=== PATIENT | female | born 1960 | race Caucasian/White ===

== ENCOUNTER → 2017-04-20 14:30 | Outpatient (REF) | payer MEDICAID, SELFPAY | LOC: LAB 14:30 | PROVIDERS: Visit Provider Physician Assistant | DX: L02.216 Cutaneous abscess of umbilicus (principal) | CPT/HCPCS: 87070; 87077; 87205 ==

== ENCOUNTER → 2017-05-10 12:17 | Outpatient (CLI) | payer MEDICAID, SELFPAY ==
[2017-05-10 12:47] LABS: Anion Gap 6.6 mEq/L (5-15); Blood Urea Nitrogen 4 mg/dL (7-18); Carbon Dioxide 31 mmol/L (21.0-32.0); Chloride 105 mmol/L (98-107); Creatinine,Serum 0.83 mg/dL (0.55-1.02); Estimated Glomerular Filt Rate 71 ml/min (>60); GFR (African American) 85 ML/MIN (>60); Glucose 87 mg/dL (74-106); Potassium 3.6 mmoL/L (3.5-5.1); Sodium 139 mmol/L (136-145)
== END ==
PROVIDERS: Visit Provider Physician Assistant
DX: Z01.812 Encounter for preprocedural laboratory examination (principal)
CPT/HCPCS: 36415; 80048

== ENCOUNTER → 2019-01-17 14:23 | Outpatient (CLI) | payer MEDICAID, SELFPAY ==
[2019-01-17 14:38] LABS: Basophils # 0.1 K/mm3 (0-0.2); Basophils % 0.8 % (0.1-2.0); Eosinophils # 0.1 K/mm3 (0.0-0.4); Eosinophils % 0.9 % (0.1-12.0); Hematocrit 46.7 % (37.0-47.0); Lymphocytes # 2.3 K/mm3 (0.7-4.5); Lymphocytes % 33.3 % (10-50); Mean Corpuscular HGB Conc 32.1 g/dL (31.8-35.4); Mean Corpuscular Hemoglobin 28.8 pg (27.0-31.2); Mean Corpuscular Volume 89.8 fl (81-99); Mean Platelet Volume 9.2 fl (7.4-10.4); Monocytes # 0.3 K/mm3 (0.1-1.0); Monocytes % 4.2 % (1.7-9.3); Neutrophils # 4.2 K/mm3 (1.8-7.8); Neutrophils % 60.8 % (37.0-80.0); Platelet Count 306 K/mm3 (142-424); Red Cell Distribution Width 13.7 % (11.5-17.5)
[2019-01-17 16:32] LABS: Alanine Aminotransferase 21 U/L (12-78); Albumin Level 3.8 gm/dL (3.4-5.0); Albumin/Globulin Ratio 1.3 (1.1-1.8); Alkaline Phosphatase 69 U/L (46-116); Aspartate Amino Transferase 10 U/L (15-37); Bilirubin,Total 0.6 mg/dL (0.2-1.0); Blood Urea Nitrogen 5 mg/dL (7-18); Calcium 8.9 mg/dL (8.5-10.1); Carbon Dioxide 24 mmol/L (21.0-32.0); Chloride 103 mmol/L (98-107); Chol/HDL Ratio 3.4 (1-3.5); Cholesterol 195 mg/dL (140-200); Creatinine,Serum 0.87 mg/dL (0.55-1.02); Estimated Glomerular Filt Rate 67 ml/min (>60); GFR (African American) 81 ML/MIN (>60); Globulin 2.9 gm/dl (1.3-3.2); Glucose 92 mg/dL (74-106); HDL Cholesterol 58 mg/dL (29-89); LDL Cholesterol 112 mg/dL (0-130); Sodium 141 mmol/L (136-145); T4 (Thyroxine) 10.6 ug/dl (4.7-13.3); Thyroid Stimulating Hormone 1.13 uIU/ml (0.358-3.740); Total Protein,Serum 6.7 gm/dL (6.4-8.2); Triglycerides 126 mg/dL (30-200); VLDL Cholesterol 25 mg/dL (0-40)
[2019-01-19 08:13] LABS: Vitamin D 25 Hydroxy 13.4 ng/mL (30.0-100.0)
== END ==
PROVIDERS: Visit Provider Physician Assistant
DX: M19.90 Unspecified osteoarthritis, unspecified site (principal); E55.9 Vitamin D deficiency, unspecified
CPT/HCPCS: 80053; 80061; 82652; 84436; 84443; 85025

== ENCOUNTER → 2019-07-17 14:36 | Outpatient (CLI) | payer MEDICAID, SELFPAY ==
[2019-07-17 15:01] LABS: Basophils # 0.1 K/mm3 (0-0.2); Basophils % 0.8 % (0.1-2.0); Eosinophils # 0.1 K/mm3 (0.0-0.4); Eosinophils % 1.2 % (0.1-12.0); Hematocrit 48.7 % (37.0-47.0); Hemoglobin 15.7 g/dL (12.2-16.2); Lymphocytes # 2.4 K/mm3 (0.7-4.5); Lymphocytes % 28.2 % (10-50); Mean Corpuscular HGB Conc 32.3 g/dL (31.8-35.4); Mean Corpuscular Hemoglobin 27.9 pg (27.0-31.2); Mean Corpuscular Volume 86.3 fl (81-99); Mean Platelet Volume 8.6 fl (7.4-10.4); Monocytes # 0.4 K/mm3 (0.1-1.0); Monocytes % 4.8 % (1.7-9.3); Neutrophils # 5.5 K/mm3 (1.8-7.8); Platelet Count 362 K/mm3 (142-424); Red Blood Count 5.64 M/mm3 (4.20-5.40); Red Cell Distribution Width 14.3 % (11.5-17.5); White Blood Count 8.5 K/mm3 (4.8-10.8)
[2019-07-17 15:11] LABS: Chloride 105 mmol/L (98-107); Potassium 3.9 mmoL/L (3.5-5.1); Sodium 139 mmol/L (136-145)
[2019-07-17 15:13] LABS: Blood Urea Nitrogen 11 mg/dl (7-17); Estimated Glomerular Filt Rate 73 ml/min (>60); GFR (African American) 89 ML/MIN (>60)
[2019-07-17 15:14] LABS: Alanine Aminotransferase 19 U/L (12-78); Albumin Level 4.8 g/dl (3.5-5.0); Albumin/Globulin Ratio 1.7 (1.1-1.8); Alkaline Phosphatase 70 U/L (38-126); Anion Gap 10.9 mEq/L (5-15); Aspartate Amino Transferase 31 U/L (14-36); Bilirubin,Total 0.6 mg/dl (0.2-1.3); Calcium 10.1 mg/dl (8.4-10.2); Carbon Dioxide 27 mmol/L (22.0-30.0); Cholesterol 245 mg/dl (140-200); Globulin 2.9 g/dL (1.3-3.2); Glucose 115 mg/dl (74-100); HDL Cholesterol 83 mg/dl (40-60); Total Protein,Serum 7.7 g/dl (6.3-8.2); Triglycerides 143 mg/dl (30-150); VLDL Cholesterol 29 mg/dL (0-40)
[2019-07-17 15:26] LABS: Direct LDL Cholesterol 152.33 mg/dL (100-129)
[2019-07-17 15:32] LABS: T4 (Thyroxine) 11.4 ug/dl (5.53-11.0)
[2019-07-17 15:45] LABS: Thyroid Stimulating Hormone 1.67 uIU/mL (0.465-4.68)
[2019-07-18 21:53] LABS: Vitamin D 25 Hydroxy 13.4
== END ==
PROVIDERS: Visit Provider Physician Assistant
DX: M19.90 Unspecified osteoarthritis, unspecified site (principal); E55.9 Vitamin D deficiency, unspecified
CPT/HCPCS: 80053; 80061; 82652; 84436; 84443; 85025

== ENCOUNTER → 2019-07-27 12:49 | Outpatient (CLI) | payer MEDICAID, SELFPAY ==
--- NOTE | 2019-07-27 12:49 | MM_ITS ---
PROCEDURE: MM DIG SCREENING MAMM BI W/CAD Digital Breast Tomosynthesis Included CLINICAL INDICATION: screening There is no personal or family history of breast cancer. COMPARISON: DMSB DIG MAMM-SCREEN ANA ROSA from 02/20/2016 TECHNIQUE: Standard CC and MLO images and 3D Tomosynthesis was obtained. R2 CAD reviewed. FINDINGS: Mild scattered fibroglandular densities are seen throughout both breasts on a background of fatty breast parenchyma. There are few benign-appearing microcalcifications in each breast. Tim images were reviewed. There is no suspicious lesion in either breast and no suspicious microcalcifications. IMPRESSION: Fibrofatty parenchyma with no suspicious lesions seen BI-RAD Category: 2 Benign Finding(s) FOLLOW-UP: 1YR 1 Year Follow-up (A letter has been sent to the patient regarding results of the study.) Dictated by: Dr. Cisco Preston MD 07/28/2019 08:[address] Cisco Preston MD in [place] 07/28/2019 08:55
== END ==
PROVIDERS: PCP Physician Assistant; Visit Provider Physician Assistant
DX: Z12.31 Encounter for screening mammogram for malignant neoplasm of breast (principal)
CPT/HCPCS: 77063; 77067

== ENCOUNTER → 2019-09-14 13:22 | Outpatient (CLI) | payer MEDICAID, SELFPAY | PROVIDERS: Visit Provider Physician Assistant | DX: N39.0 Urinary tract infection, site not specified (principal) | CPT/HCPCS: 87086 ==

== ENCOUNTER → 2020-08-06 14:06 | Outpatient (CLI) | payer MEDICAID, SELFPAY ==
[2020-08-06 14:17] LABS: Basophils # 0.1 K/mm3 (0-0.2); Eosinophils # 0.1 K/mm3 (0.0-0.4); Eosinophils % 1.1 % (0.1-12.0); Hematocrit 45.8 % (37.0-47.0); Hemoglobin 15.4 g/dL (12.2-16.2); Lymphocytes # 2.2 K/mm3 (0.7-4.5); Lymphocytes % 28.7 % (10-50); Mean Corpuscular HGB Conc 33.6 g/dL (31.8-35.4); Mean Corpuscular Hemoglobin 29.2 pg (27.0-31.2); Mean Corpuscular Volume 86.8 fl (81-99); Mean Platelet Volume 8.7 fl (7.4-10.4); Monocytes # 0.4 K/mm3 (0.1-1.0); Monocytes % 5.5 % (1.7-9.3); Neutrophils % 63.7 % (37.0-80.0); Platelet Count 359 K/mm3 (142-424); Red Blood Count 5.28 M/mm3 (4.20-5.40); Red Cell Distribution Width 14.5 % (11.5-17.5); White Blood Count 7.8 K/mm3 (4.8-10.8)
[2020-08-06 14:49] LABS: Alanine Aminotransferase 13 U/L (12-78); Albumin Level 4.2 g/dl (3.5-5.0); Albumin/Globulin Ratio 1.6 (1.1-1.8); Alkaline Phosphatase 66 U/L (38-126); Anion Gap 8.4 mEq/L (5-15); Aspartate Amino Transferase 23 U/L (14-36); Bilirubin,Total 0.6 mg/dl (0.2-1.3); Blood Urea Nitrogen 6 mg/dl (7-17); Calcium 9.5 mg/dl (8.4-10.2); Carbon Dioxide 33 mmol/L (22.0-30.0); Chloride 105 mmol/L (98-107); Chol/HDL Ratio 3.9 (1-3.5); Cholesterol 216 mg/dl (140-200); Estimated Glomerular Filt Rate 73 ml/min (>60); GFR (African American) 88 ML/MIN (>60); Globulin 2.7 g/dL (1.3-3.2); Glucose 81 mg/dl (74-100); HDL Cholesterol 55 mg/dl (40-60); Potassium 4.4 mmoL/L (3.5-5.1); Sodium 142 mmol/L (136-145); Total Protein,Serum 6.9 g/dl (6.3-8.2); Triglycerides 185 mg/dl (30-150); VLDL Cholesterol 37 mg/dL (0-40)
[2020-08-06 15:01] LABS: Direct LDL Cholesterol 107.25 mg/dL (100-129)
[2020-08-06 15:06] LABS: 25-OH Vitamin D, Total 16.5 ng/mL (30-100)
[2020-08-06 15:15] LABS: Free T4 (Free Thyroxine) 1.27 ng/dl (0.78-2.19)
[2020-08-06 15:21] LABS: Thyroid Stimulating Hormone 1.65 uIU/mL (0.465-4.68)
[2020-08-06 15:39] LABS: Vitamin B12 277 pg/mL (239-931)
== END ==
PROVIDERS: Visit Provider Physician Assistant
DX: M19.90 Unspecified osteoarthritis, unspecified site (principal); G62.9 Polyneuropathy, unspecified; E78.5 Hyperlipidemia, unspecified; E55.9 Vitamin D deficiency, unspecified; K21.9 Gastro-esophageal reflux disease without esophagitis
CPT/HCPCS: 80053; 80061; 82306; 82607; 84439; 84443; 85025

== ENCOUNTER → 2020-08-19 16:02 | Outpatient (CLI) | payer MEDICAID, SELFPAY ==
--- NOTE | 2020-08-19 16:05 | MM_ITS ---
PROCEDURE: MM DIG SCREENING MAMM BI W/CAD Digital Breast Tomosynthesis Included CLINICAL INDICATION: Breast cancer screening COMPARISON: MG DMSB DIG MAMM-SCREEN ANA ROSA from 02/20/2016 MG MM DIG SCREENING MAMM BI W/CAD from 07/27/2019 TECHNIQUE: Standard CC and MLO images and 3D Tomosynthesis was obtained. R2 CAD reviewed. FINDINGS: There are scattered fibroglandular elements which may obscure a lesion on mammography. No new dominant mass or indirect evidence of malignancy. No suspicious type microcalcifications. IMPRESSION: Normal bilateral digital screening mammograms. BI-RAD Category: 1 Negative FOLLOW-UP: 1 YR 1 Year Follow-up (A letter has been sent to the patient regarding results of the study.) Dictated by: Miguel Baez MD 08/21/2020 16:54 Miguel Baez MD in [place] 08/21/2020 16:54
== END ==
PROVIDERS: PCP Physician Assistant; Visit Provider Physician Assistant
DX: Z12.31 Encounter for screening mammogram for malignant neoplasm of breast (principal)
CPT/HCPCS: 77063; 77067

== ENCOUNTER 2021-04-03 08:59 | Emergency (ER) | payer MEDICAID, SELFPAY ==
[2021-04-03 09:01] VITALS: BP 129/84; PULSE 104; RESP 20; TEMP 36.5; O2SAT 96; BMI 28.5
[2021-04-03 09:08] VITALS: BP 129/84; PULSE 101; O2SAT 97
--- NOTE | 2021-04-03 09:17 | XR_ITS ---
FINAL REPORT CLINICAL HISTORY: fatigue, cough FINDINGS: SINGLE VIEW CHEST The heart is normal in size. Median sternotomy wires are seen in the upper sternum. There is a calcified granuloma at the right apex. The lungs are otherwise clear. There is no pneumothorax. IMPRESSION: No acute cardiopulmonary process Reviewed, Interpreted and Dictated by Mal Quinones MD Transcribed by Priya Guevara Authenticated by Mal Quinones MD on 04/03/2021 10:07:22 AM [facility]
[2021-04-03 09:21] LABS: Influenza A, PCR Not Detected (NotDetected); Influenza B, PCR Not Detected (NotDetected)
[2021-04-03 09:26] LABS: Basophils # 0.2 K/mm3 (0-0.2); Basophils % 1.2 % (0.1-2.0); Eosinophils # 0.2 K/mm3 (0.0-0.4); Eosinophils % 1.6 % (0.1-12.0); Lymphocytes # 2.2 K/mm3 (0.7-4.5); Lymphocytes % 16.6 % (10-50); Mean Corpuscular HGB Conc 34.8 g/dL (31.8-35.4); Mean Corpuscular Hemoglobin 29.9 pg (27.0-31.2); Mean Corpuscular Volume 85.8 fl (81-99); Mean Platelet Volume 8.9 fl (7.4-10.4); Monocytes # 0.5 K/mm3 (0.1-1.0); Monocytes % 3.6 % (1.7-9.3); Neutrophils # 10.3 K/mm3 (1.8-7.8); Platelet Count 495 K/mm3 (142-424); Red Blood Count 6.18 M/mm3 (4.20-5.40); Red Cell Distribution Width 13.4 % (11.5-17.5); White Blood Count 13.4 K/mm3 (4.8-10.8)
--- NOTE | 2021-04-03 09:26 | HMH.EDGENADL ---
ED Disposition Clinical Impression: COVID-19, Hypokalemia Disposition: Home, Self-Care Condition on Discharge: Fair Instructions: DI for COVID-19 (Suspected or Confirmed ), DI for Hypokalemia Additional Instructions: You have been evaluated for malaise, fatigue, decreased oral intake. You have been diagnosed with COVID-19. Your potassium level today is low. Please monitor your symptoms at home. Tylenol for aches and pains. Zofran for nausea. Take potassium supplement daily. Follow-up with your primary care doctor. Return to the emergency department for any new or worsening symptoms, difficulty breathing or other concerns Prescriptions: ondansetron HCL [Ondansetron 4mg tab*] 4 mg PO Q6 PRN #12 tab PRN Reason: Nausea And Vomiting Transmission Status: Pending to [facility] Referrals: Becky Chawla PA [Primary Care Provider] - Time of Disposition: 11:20 - Critical Care Critical Care Time: No Attestation: On 04/03/21, the high probability of a clinically significant, sudden or life threatening deterioration of the following system(s) required my full and direct attention, intervention and personal management. The time I documented below is in addition to time spent performing reported procedures but includes the following listed in this critical care notation. Medical Decision Making - Medical Records Medical records reviewed: Yes: I reviewed the patient's medical records. - [place] Inquiry Pt receiving controlled substance: No Vital Signs: 04/03/21 09:01 04/03/21 09:08 04/03/21 11:05 Temperature 97.7 F Temperature Source Oral Pulse Rate 101 H 71 Pulse Rate [Left Radial] 104 H Respiratory Rate 20 Blood Pressure 129/84 144/69 H Blood Pressure [Right Arm] 129/84 Blood Pressure Mean [Right Arm] 99 Blood Pressure Source [Right Arm] Automatic Cuff Blood Pressure Position [Right Arm] Sitting 02 Sat by Pulse Oximetry 96 97 100 Oxygen Delivery Method Room Air - Lab Data Lab Results 04/03/21 09:15: WBC 13.4 H, RBC 6.18 H, Hgb 18.3 H, Hct 53.0 H, MCV 85.8, MCH 29.9, MCHC 34.8, RDW 13.4, Plt Count 495 H, MPV 8.9, Neut % (Auto) 77.0, Lymph % (Auto) 16.6, Barton % (Auto) 3.6, Eos % (Auto) 1.6, Baso % (Auto) 1.2, Neut # (Auto) 10.3 H, Lymph # (Auto) 2.2, Barton # (Auto) 0.5, Eos # (Auto) 0.2, Baso # (Auto) 0.2 04/03/21 09:15: Sodium 138, Potassium 2.9 L*, Chloride 97 L, Carbon Dioxide 30, Anion Gap 13.9, BUN 21 H, Creatinine 0.90, Estimated Creat Clear 65, Estimated GFR 63, Est GFR ( Amer) 77, Glucose 118 H, Calcium 9.2, Total Bilirubin 1.6 H, AST 70 H, ALT 83 H, Alkaline Phosphatase 60, Total Protein 6.6, Albumin 4.1, Globulin 2.5, Albumin/Globulin Ratio 1.6, Lipase 133 04/03/21 09:15: SARS-CoV-2 (PCR) Detected A, Influenza A Untype (PCR) Not detected, Influenza Type B (PCR) Not detected Result diagrams: 04/03/21 09:15 04/03/21 09:15 Orders (Tests/Meds): ED MEDICATIONS Generic Name Dose Route Start Last Admin Trade Name Freq PRN Reason Stop Dose Admin Sodium Chloride 1,000 mls @ 500 mls/hr 04/03/21 09:30 04/03/21 09:47 Sod Chlor 0.9% 1000ml Bag IV 05/03/21 09:29 500 mls/hr .Q2H JACQUELINE Administration Discontinued Medications Generic Name Dose Route Start Last Admin Trade Name Freq PRN Reason Stop Dose Admin Ondansetron HCl 4 mg 04/03/21 09:17 04/03/21 09:46 Ondansetron 4mg/2ml Vial IV 04/03/21 09:18 4 mg ONCE ONE Administration ORDERS Category Date Time Status Urinalysis and Microscopic Stat Lab 04/03/21 09:17 Ordered Medical Decision Narrative: In summary this is a 61-year-old female presenting to the emergency department with body aches, malaise, cough, diarrhea, fatigue. Patient clinically stable on arrival. Vital signs within normal limits. Concern for COVID-19, influenza, dehydration, kidney injury, electrolyte disturbance, urinary tract infection, pneumonia. Will obtain CBC, CMP, lipase, urinalysis, chest x-ray,
[2021-04-03 09:37] LABS: Hemoglobin 18.3 g/dL (12.2-16.2)
[2021-04-03 10:04] LABS: Coronavirus 19, PCR Detected (NotDetected)
[2021-04-03 10:44] LABS: Alanine Aminotransferase 83 U/L (12-78); Albumin Level 4.1 g/dl (3.5-5.0); Albumin/Globulin Ratio 1.6 (1.1-1.8); Alkaline Phosphatase 60 U/L (38-126); Anion Gap 13.9 mEq/L (5-15); Aspartate Amino Transferase 70 U/L (14-36); Bilirubin,Total 1.6 mg/dl (0.2-1.3); Blood Urea Nitrogen 21 mg/dl (7-17); Calcium 9.2 mg/dl (8.4-10.2); Carbon Dioxide 30 mmol/L (22.0-30.0); Chloride 97 mmol/L (98-107); Creatinine Clearance Estimated 65 mL/min (50-200); Estimated Glomerular Filt Rate 63 ml/min (>60); GFR (African American) 77 ML/MIN (>60); Globulin 2.5 g/dL (1.3-3.2); Glucose 118 mg/dl (74-100); Lipase 133 U/L (23-300); Sodium 138 mmol/L (136-145); Total Protein,Serum 6.6 g/dl (6.3-8.2)
[2021-04-03 10:47] LABS: Potassium 2.9 mmoL/L (3.5-5.1)
[2021-04-03 11:05] VITALS: BP 144/69; PULSE 71; O2SAT 100
[2021-04-03 11:30] VITALS: BP 147/68; PULSE 68; O2SAT 96
[2021-04-03 12:01] VITALS: BP 144/71; PULSE 81; O2SAT 100
--- NOTE | 2021-04-03 12:14 | PC.NURSE ---
Patient eating at bedside
[2021-04-03 12:52] VITALS: BP 144/71; PULSE 81; RESP 20; TEMP 36.5; O2SAT 100
== END 2021-04-03 12:53 | disposition home or self-care (01) ==
PROVIDERS: Emergency Provider Emergency Medicine; PCP Physician Assistant
DX: U07.1 COVID-19 (principal); K21.9 Gastro-esophageal reflux disease without esophagitis; F17.210 Nicotine dependence, cigarettes, uncomplicated
CPT/HCPCS: 71045; 80053; 83690; 85025; 99283; C9803; J2405; U0003; U0005

== ENCOUNTER → 2021-08-21 13:26 | Outpatient (CLI) | payer MEDICAID, SELFPAY ==
[2021-08-21 13:33] LABS: Anion Gap 11.8 mEq/L (5-15); Blood Urea Nitrogen 9 mg/dl (7-17); Calcium 9.5 mg/dl (8.4-10.2); Carbon Dioxide 26 mmol/L (22.0-30.0); Chloride 105 mmol/L (98-107); Estimated Glomerular Filt Rate 85 ml/min (>60); GFR (African American) 103 ML/MIN (>60); Glucose 101 mg/dl (74-100); Potassium 3.8 mmoL/L (3.5-5.1); Sodium 139 mmol/L (136-145)
== END ==
PROVIDERS: PCP Physician Assistant; Visit Provider Physician Assistant
DX: R60.0 Localized edema (principal)
CPT/HCPCS: 80048

== ENCOUNTER → 2022-04-22 11:05 | Outpatient (CLI) | payer MEDICAID, SELFPAY ==
[2022-04-22 15:48] LABS: Basophils # 0.1 K/mm3 (0-0.2); Basophils % 1.1 % (0.1-2.0); Eosinophils # 0.1 K/mm3 (0.0-0.4); Eosinophils % 2.5 % (0.1-12.0); Hematocrit 41.8 % (37.0-47.0); Hemoglobin 13.7 g/dL (12.2-16.2); Lymphocytes # 1.9 K/mm3 (0.7-4.5); Lymphocytes % 33.7 % (10-50); Mean Corpuscular HGB Conc 32.7 g/dL (31.8-35.4); Mean Corpuscular Hemoglobin 29.7 pg (27.0-31.2); Mean Corpuscular Volume 90.8 fl (81-99); Mean Platelet Volume 9.2 fl (7.4-10.4); Monocytes # 0.3 K/mm3 (0.1-1.0); Monocytes % 5.3 % (1.7-9.3); Neutrophils # 3.2 K/mm3 (1.8-7.8); Neutrophils % 57.5 % (37.0-80.0); Platelet Count 299 K/mm3 (142-424); Red Cell Distribution Width 16.4 % (11.5-17.5); White Blood Count 5.6 K/mm3 (4.8-10.8)
[2022-04-22 16:11] LABS: Alanine Aminotransferase 21 U/L (12-78); Albumin Level 3.9 g/dl (3.5-5.0); Albumin/Globulin Ratio 1.7 (1.1-1.8); Alkaline Phosphatase 69 U/L (38-126); Anion Gap 9.3 mEq/L (5-15); Aspartate Amino Transferase 29 U/L (14-36); Bilirubin,Total 0.6 mg/dl (0.2-1.3); Blood Urea Nitrogen 8 mg/dl (7-17); Calcium 8.6 mg/dl (8.4-10.2); Carbon Dioxide 31 mmol/L (22.0-30.0); Chloride 106 mmol/L (98-107); Chol/HDL Ratio 2.5 (1-3.5); Cholesterol 154 mg/dl (140-200); Estimated Glomerular Filt Rate 72 ml/min (>60); GFR (African American) 88 ML/MIN (>60); Globulin 2.3 g/dL (1.3-3.2); Glucose 84 mg/dl (74-100); HDL Cholesterol 62 mg/dl (40-60); Potassium 4.3 mmoL/L (3.5-5.1); Sodium 142 mmol/L (136-145); Total Protein,Serum 6.2 g/dl (6.3-8.2); Triglycerides 82 mg/dl (30-150); VLDL Cholesterol 16 mg/dL (0-40)
[2022-04-22 16:22] LABS: Direct LDL Cholesterol 69.59 mg/dL (100-129)
[2022-04-22 16:40] LABS: Thyroid Stimulating Hormone 1.57 uIU/mL (0.465-4.68)
[2022-04-22 16:50] LABS: 25-OH Vitamin D, Total 18.6 ng/mL (30-100)
== END ==
PROVIDERS: PCP Physician Assistant; Visit Provider Physician Assistant
DX: I10 Essential (primary) hypertension (principal); R53.83 Other fatigue; E55.9 Vitamin D deficiency, unspecified
CPT/HCPCS: 80053; 80061; 82306; 84443; 85025

== ENCOUNTER → 2022-05-20 09:48 | Outpatient (CLI) | payer MEDICAID, SELFPAY ==
--- NOTE | 2022-05-20 09:53 | XR_ITS ---
FINAL REPORT CLINICAL HISTORY: foot pain FINDINGS: Right foot Three views were obtained. There is no acute fracture or dislocation. There are mild degenerative changes. Note is made of calcaneal spurs. No soft tissue abnormality is identified. IMPRESSION: Degenerative changes as detailed above. Reviewed, Interpreted and Dictated by Dax Suresh III, MD Transcribed by Priya Guevara Authenticated and [facility]
--- NOTE | 2022-05-20 09:53 | XR_ITS ---
FINAL REPORT CLINICAL HISTORY: foot pain FINDINGS: Left foot Three views were obtained. There is no acute fracture or dislocation. There are mild degenerative changes. There is chronic calcification lateral to the 1st proximal phalanx. Note is made of calcaneal spurs. IMPRESSION: Degenerative findings as detailed above. Reviewed, Interpreted and Dictated by Dax Suresh III, MD Transcribed by Priya Guevara Authenticated and [facility]
== END ==
PROVIDERS: PCP Physician Assistant; Visit Provider Podiatrist
DX: M79.672 Pain in left foot (principal); M79.671 Pain in right foot
CPT/HCPCS: 73630

== ENCOUNTER → 2022-09-23 15:43 | Outpatient (CLI) | payer MEDICAID, SELFPAY ==
--- NOTE | 2022-09-23 15:47 | XR_ITS ---
PROCEDURE INFORMATION: Exam: XR Right Foot Complete; Alignment Exam date and time: 09/23/2022 3:49 PM Age: 62 years old Clinical indication: Patient HX: Right foot pain, weight bearing views. TECHNIQUE: Imaging protocol: Radiologic exam of the right foot. Views: 3 or more views. COMPARISON: CR XR FOOT WT BEARING RT 3V 05/20/2022 9:55 AM FINDINGS: Bones/joints: No acute fracture or dislocation. Mild degenerative changes. Dorsal and plantar calcaneal enthesophytes. Soft tissues: Normal. IMPRESSION: No acute osseous abnormality. No significant interval change.
== END ==
PROVIDERS: PCP Physician Assistant; Visit Provider Nurse Practitioner Family
DX: M79.671 Pain in right foot (principal)
CPT/HCPCS: 73630

== ENCOUNTER → 2023-01-18 13:59 | Outpatient (CLI) | payer MEDICAID, SELFPAY ==
[2023-01-18 13:04] LABS: Basophils # 0.1 K/mm3 (0-0.2); Basophils % 0.7 % (0.1-2.0); Eosinophils # 0.1 K/mm3 (0.0-0.4); Eosinophils % 1.1 % (0.1-12.0); Hematocrit 49.8 % (37.0-47.0); Lymphocytes # 2.3 K/mm3 (0.7-4.5); Lymphocytes % 25.6 % (10-50); Mean Corpuscular HGB Conc 34.2 g/dL (31.8-35.4); Mean Corpuscular Hemoglobin 31.5 pg (27.0-31.2); Mean Corpuscular Volume 92.1 fl (81-99); Mean Platelet Volume 9.6 fl (7.4-10.4); Monocytes # 0.4 K/mm3 (0.1-1.0); Monocytes % 4.1 % (1.7-9.3); Neutrophils # 6.1 K/mm3 (1.8-7.8); Neutrophils % 68.6 % (37.0-80.0); Platelet Count 311 K/mm3 (142-424); Red Blood Count 5.41 M/mm3 (4.20-5.40); Red Cell Distribution Width 14.2 % (11.5-17.5); White Blood Count 8.8 K/mm3 (4.8-10.8)
[2023-01-18 13:29] LABS: Alanine Aminotransferase 13 U/L (12-78); Albumin Level 4.2 g/dl (3.5-5.0); Albumin/Globulin Ratio 1.7 (1.1-1.8); Alkaline Phosphatase 63 U/L (38-126); Anion Gap 12.2 mEq/L (5-15); Aspartate Amino Transferase 24 U/L (14-36); Bilirubin,Total 0.5 mg/dl (0.2-1.3); Blood Urea Nitrogen 8 mg/dl (7-17); Calcium 9.4 mg/dl (8.4-10.2); Carbon Dioxide 31 mmol/L (22.0-30.0); Chloride 102 mmol/L (98-107); Chol/HDL Ratio 3.7 (1-3.5); Cholesterol 216 mg/dl (140-200); Estimated Glomerular Filt Rate 72 ml/min (>60); GFR (African American) 88 ML/MIN (>60); Globulin 2.5 g/dL (1.3-3.2); Glucose 78 mg/dl (74-100); HDL Cholesterol 59 mg/dl (40-60); Potassium 4.2 mmoL/L (3.5-5.1); Sodium 141 mmol/L (136-145); Total Protein,Serum 6.7 g/dl (6.3-8.2); Triglycerides 123 mg/dl (30-150); VLDL Cholesterol 25 mg/dL (0-40)
[2023-01-18 13:40] LABS: Direct LDL Cholesterol 122.89 mg/dL (100-129)
[2023-01-18 13:43] LABS: 25-OH Vitamin D, Total 51.7 ng/mL (30-100)
[2023-01-18 14:00] LABS: Thyroid Stimulating Hormone 1.88 uIU/mL (0.465-4.68)
== END ==
PROVIDERS: PCP Physician Assistant; Visit Provider Physician Assistant
DX: E78.5 Hyperlipidemia, unspecified (principal); E55.9 Vitamin D deficiency, unspecified; Z79.899 Other long term (current) drug therapy
CPT/HCPCS: 80053; 80061; 82306; 84443; 85025

== ENCOUNTER 2023-04-21 15:52 | Outpatient (CLI) | payer MEDICAID, SELFPAY ==
[2023-04-21 16:27] LABS: Basophils # 0.1 K/mm3 (0-0.2); Basophils % 0.6 % (0.1-2.0); Eosinophils # 0.2 K/mm3 (0.0-0.4); Eosinophils % 1.7 % (0.1-12.0); Hematocrit 47.8 % (37.0-47.0); Hemoglobin 16.6 g/dL (12.2-16.2); Lymphocytes % 35.4 % (10-50); Mean Corpuscular HGB Conc 34.7 g/dL (31.8-35.4); Mean Corpuscular Hemoglobin 31.5 pg (27.0-31.2); Mean Corpuscular Volume 90.8 fl (81-99); Mean Platelet Volume 8.3 fl (7.4-10.4); Monocytes # 0.4 K/mm3 (0.1-1.0); Monocytes % 4.1 % (1.7-9.3); Neutrophils % 58.2 % (37.0-80.0); Platelet Count 331 K/mm3 (142-424); Red Blood Count 5.27 M/mm3 (4.20-5.40); White Blood Count 8.5 K/mm3 (4.8-10.8)
[2023-04-21 16:48] LABS: Alanine Aminotransferase 18 U/L (12-78); Albumin Level 4.3 g/dl (3.5-5.0); Alkaline Phosphatase 66 U/L (38-126); Anion Gap 10.9 mEq/L (5-15); Aspartate Amino Transferase 30 U/L (14-36); Bilirubin,Direct 0.1 mg/dl (0.0-0.4); Bilirubin,Indirect 0.7 mg/dL (0.0-0.9); Bilirubin,Total 0.8 mg/dl (0.2-1.3); Bilirubin,Unconjugated 0.7 mg/dL (0.0-1.1); Blood Urea Nitrogen 5 mg/dl (7-17); Calcium 9.6 mg/dl (8.4-10.2); Carbon Dioxide 31 mmol/L (22.0-30.0); Chloride 105 mmol/L (98-107); Chol/HDL Ratio 3.8 (1-3.5); Cholesterol 241 mg/dl (140-200); Estimated Glomerular Filt Rate 84 ml/min (>60); GFR (African American) 102 ML/MIN (>60); Glucose 91 mg/dl (74-100); HDL Cholesterol 64 mg/dl (40-60); Potassium 3.9 mmoL/L (3.5-5.1); Sodium 143 mmol/L (136-145); Total Protein,Serum 7.2 g/dl (6.3-8.2); Triglycerides 142 mg/dl (30-150); VLDL Cholesterol 28 mg/dL (0-40)
[2023-04-21 17:00] LABS: Direct LDL Cholesterol 116.54 mg/dL (100-129)
[2023-04-21 17:12] LABS: Free T4 (Free Thyroxine) 1.35 ng/dl (0.78-2.19)
[2023-04-21 17:15] LABS: Troponin I < 0.01 ng/ml (0.00-0.034)
[2023-04-21 17:19] LABS: Thyroid Stimulating Hormone 1.39 uIU/mL (0.465-4.68)
== END 2023-04-21 23:59 ==
LOC: LAB 15:53
PROVIDERS: PCP Physician Assistant; Visit Provider Internal Medicine
DX: R06.00 Dyspnea, unspecified (principal); R07.89 Other chest pain; R00.2 Palpitations; I20.89 Other forms of angina pectoris; I11.9 Hypertensive heart disease without heart failure; E78.5 Hyperlipidemia, unspecified; K21.9 Gastro-esophageal reflux disease without esophagitis; E11.9 Type 2 diabetes mellitus without complications; Z95.2 Presence of prosthetic heart valve; Z79.899 Other long term (current) drug therapy
CPT/HCPCS: 36415; 80048; 80061; 80076; 84439; 84443; 84484; 85025; 93270

== ENCOUNTER 2023-04-28 15:21 | Emergency (ER) | payer MEDICAID, SELFPAY ==
[2023-04-28 16:38] VITALS: BP 0/0; PULSE 0; RESP 0; TEMP -17.7; TEMP 0; O2SAT 0
== END 2023-04-28 16:38 | disposition left against medical advice (07) ==
PROVIDERS: Emergency Provider Nurse Practitioner; PCP Physician Assistant
DX: Z53.21 Procedure and treatment not carried out due to patient leaving prior to being seen by health care provider (principal)

== ENCOUNTER 2023-05-17 08:40 | Day surgery (SDC) | payer MEDICAID, SELFPAY ==
[2023-05-17] VITALS (13 sets, daily range): BP systolic 161–191; BP diastolic 71–96; PULSE 46–69; RESP 16–20; O2SAT 90–97; BMI 26.4
--- NOTE | 2023-05-17 07:03 | IR_ITS ---
APPROVED REPORT Patient Location: Outpatient PROCEDURES Left heart catheterization Left ventriculogram Selective coronary angiogram Drug-eluting stent deployment to the circumflex artery Bilateral selective renal angiography Bare-metal stent deployment to the ostial right renal artery Catheter placement in the right external iliac artery Right external iliac artery antegrade angiogram with unilateral runoff to the right foot Catheter placement to the left external iliac artery Left external iliac artery antegrade angiogram with unilateral runoff to the left foot Catheter placed into the distal abdominal aorta Distal abdominal aortography INDICATION Coronary artery disease, Angina pectoris, Renovascular hypertension, Renal artery stenosis, Peripheral artery disease, [place] claudication class III Informed consent was obtained prior to the procedure. COMPLICATIONS None Estimated Blood Loss: Less than 10 ml TECHNIQUE One percent lidocaine used to anesthetize the right anterior aspect of the wrist. The right radial artery was accessed via the Seldinger technique. A 6 American sheath was placed in the right radial artery. 2.5 mg of Verapamil, 800 mcg of nitroglycerin, 1mg Lidocaine and 5000 U Heparin were given through the arterial sheath. The papa catheter was also used to perform left heart catheterization, left ventriculogram and selective coronary angiogram. At the end of the diagnostic angiogram therapeutic heparin was administered giving a therapeutic ACT and the guide catheter was placed in the left main artery followed by Choice PT extra-support wire plane placed on the circumflex artery. A 3 mm x 8 mm Alex frontier stent was deployed at 20 bill reducing the severe stenosis to 0%. FREDI-3 flow was present before and after the procedure. Following this the same catheter was used to perform bilateral selective renal angiography. The guide catheter was placed in the right renal artery followed by Choice PT extra-support wire and a 7 mm x 15 mm Herculink stent was deployed at 10 bill reducing the severe stenosis to 0%. Excellent angiographic results were obtained. Following this under fluoroscopic guidance a PV multi curve was placed in the left external iliac artery where external iliac artery antegrade angiography was performed with unilateral runoff to the left foot. This procedure was repeated on the right side with unilateral runoff to the right foot from the right external iliac artery. The catheter was then pulled back to the distal abdominal aorta were distal abdominal aortography was performed. Following this the apparatus was removed the sheath was removed good hemostasis was achieved using TR banding patient was transferred to the postop holding in stable condition ANGIOGRAPHIC RESULTS The left main artery Normal The left anterior descending artery Has a proximal 30 to 40% eccentric stenosis followed by mid vessel 30% stenoses The circumflex artery Is a large nondominant vessel with proximal 30% calcified stenoses in the mid vessel concentric 80% stenosis The right coronary artery Is a dominant vessel and has proximal and mid vessel 20 and 30% stenoses with distal diffuse 30% stenoses The PADILLA ventriculogram reveals Normal 65% The left ventricular end-diastolic pressure 20 to 25 mmHg Left renal artery singular and has a proximal 20 to 30% concentric stenosis Right renal artery singular has an ostial concentric 80% stenosis Distal abdominal aorta is atheromatous but patent Right common iliac artery has a 30% stenosis while the internal iliac artery is occluded. The external iliac artery has a concentric 60 to 70% stenosis. The common femoral artery is patent. The right superficial femoral artery is ostially occluded and reconstitutes at Tervon's canal via collaterals from a widely patent profunda femoris. The right popliteal artery is patent and then gives 3 vessel runoff to the right foot Left common iliac artery has 30% stenosis and has a patent left internal iliac artery. The left external iliac artery has mild 20% stenosis. The left common femoral artery is patent. The left superficial femoral artery is ostially occluded and reconstitutes in Trevon's canal at the popliteal level from collaterals from a widely patent profunda femoris. The popliteal artery has proximal 80% stenosis with a mid vessel 40% stenosis and then gives rise to a patent AT PT and peroneal artery which slowly perfused the left foot IMPRESSION Mild to moderate disease in the proximal LAD as described above Severe circumflex artery stenosis with successful stenting reducing the focal lesion to 0% with 1 drug-eluting stent Normal ejection fraction Elevated LVEDP Severe right renal artery stenosis Successful stent to the right renal artery severe disease reduced to 0% with 1 balloon mounted bare-metal stent Severe right external iliac artery stenosis as described above Bilateral occlusion of the entire SFA with reconstitution at the popliteal level from patent profunda femoris arteries. Slow three-vessel runoff below the knee bilaterally PLAN 1. Dual antiplatelet therapy for coronary disease 2. Medical management for proximal LAD disease 3. Treatment of diastolic dysfunction 4. Patient will be brought back to the [facility] in 2 to 4 weeks and will undergo stenting of the right external iliac artery from the right groin. This will increase in flow into the severely diseased right lower extremity. 5. LDL less than 55 to be achieved with high intensity statin 6. Avoidance of tobacco products 7. Risk factor modification 8. Cardiac rehabilitation and peripheral artery physical therapy Electronically signed by : Zohaib Gutierrez MD 05/17/2023 15:40:37
--- NOTE | 2023-05-17 09:45 | CA_ITS ---
APPROVED REPORT EXAM: Comprehensive 2D, Doppler, and color-flow Echocardiogram Hat Former: Sully Hare RDCS Ht: 5 ft 1 in Wt: 140lbs BSA: 1.62 BP: 207/74 mmHg Indications: CP,AI M-Mode Dimensions RVDd 1.82 cm (0.9-2.6) LA Diam 3.32 cm (1.9-4.0) LVDd 5.66 cm (3.5-5.7) LVDs 4.06 cm (3.5-5.7) IVSd 0.72 cm (0.6-1.1) PWd 0.91 cm (0.6-1.1) EF (Teich) 54.00% FS 28.30% EDV (Teich) 157.50 mL ESV (Teich) 72.50 mL LV Diastology E Decel Time 417 (160-240 msec) E/A Ratio 1.6 Aortic Valve AI PHT 586.00 ms Mitral Valve MV E Max Idris. 126.0 (40-130 cm/s) MV A Velocity 80.0 (40-130 cm/s) E/A Ratio 1.56 MV PHT 122.0 ms Pulmonary Valve PV Peak Velocity 243.0 (50-150 cm/s) Left Ventricle The left ventricle is normal size. The left ventricular systolic function is low normal. There is normal left ventricular wall thickness. There is normal LV segmental wall motion. The left ventricular diastolic function is normal. LVEF is 50%. Right Ventricle The right ventricle is normal size. The right ventricular systolic function is normal. Atria Left atrium is mildly dilated. The right atrium size is mildly dilated. There is no Doppler evidence of interatrial shunt. Aortic Valve The aortic valve opens well. There is no aortic valvular stenosis. Mild aortic regurgitation. Mitral Valve The mitral valve leaflets are mildly thickened. No evidence of mitral valve stenosis. Mild mitral regurgitation. Tricuspid Valve The tricuspid valve leaflets are thin and pliable. Trace tricuspid regurgitation. There is insufficient TR jet to estimate RVSP. Pulmonic Valve The pulmonary valve is normal in structure. Mild to moderate pulmonic regurgitation. Great Vessels The aortic root is normal in size. The ascending aorta is not well-visualized. IVC is normal in size and collapses >50% with inspiration. Pericardium There is no pericardial effusion. Other Information Study Quality: Adequate Conclusion Normal biventricular systolic function. Mild biatrial dilation. Mild AI, mild MR. Mild to moderate PI. Electronically signed by : Chioma Norton MD 05/18/2023 20:36:58
[2023-05-17 09:51] LABS: Basophils # 0.1 K/mm3 (0-0.2); Basophils % 1.4 % (0.1-2.0); Eosinophils # 0.1 K/mm3 (0.0-0.4); Eosinophils % 2.1 % (0.1-12.0); Hematocrit 44.2 % (37.0-47.0); Hemoglobin 14.3 g/dL (12.2-16.2); Lymphocytes # 2.1 K/mm3 (0.7-4.5); Lymphocytes % 31.8 % (10-50); Mean Corpuscular HGB Conc 32.5 g/dL (31.8-35.4); Mean Corpuscular Hemoglobin 31.2 pg (27.0-31.2); Mean Corpuscular Volume 96.1 fl (81-99); Mean Platelet Volume 8.4 fl (7.4-10.4); Monocytes # 0.3 K/mm3 (0.1-1.0); Monocytes % 4.1 % (1.7-9.3); Neutrophils # 3.9 K/mm3 (1.8-7.8); Neutrophils % 60.6 % (37.0-80.0); Platelet Count 347 K/mm3 (142-424); White Blood Count 6.5 K/mm3 (4.8-10.8)
[2023-05-17 09:57] LABS: Anion Gap 6.1 mEq/L (5-15); Blood Urea Nitrogen 9 mg/dl (7-17); Calcium 8.7 mg/dl (8.4-10.2); Carbon Dioxide 33 mmol/L (22.0-30.0); Chloride 106 mmol/L (98-107); Creatinine Clearance Estimated 57 mL/min (50-200); Estimated Glomerular Filt Rate 84 ml/min (>60); GFR (African American) 102 ML/MIN (>60); Glucose 85 mg/dl (74-100); Potassium 4.1 mmoL/L (3.5-5.1); Sodium 141 mmol/L (136-145)
[2023-05-17] MEDS: ONDANSETRON 4MG/2ML VIAL 4 MG IV (10:44)
--- NOTE | 2023-05-17 11:13 | SUR.PREOP ---
pt and family notified of delay d/t acute patient in ER.
[2023-05-17] MEDS: 0.9 % SODIUM CHLORIDE 500 ML 25 ML IV (14:30)
[2023-05-17] MEDS: diphenhydrAMINE 50MG/ML VIAL 50 MG IV (14:30)
[2023-05-17] MEDS: NITROGLYCERIN 800MCG/8ML SYR (CATH LAB) 800 MCG IA (14:30)
[2023-05-17] MEDS: HEPARIN 1,000 UNITS/500ML NS (CATH LAB) 3000 UNIT IV (14:30)
[2023-05-17] MEDS: LIDOCAINE 1% 10ML MDV 20 ML IJ (14:30)
[2023-05-17] MEDS: HEPARIN 1,000 UNITS/ML 10ML VIAL (CATH LAB) 10000 UNIT IV (14:56)
[2023-05-17] MEDS: MIDAZOLAM HCL 1MG/1ML 5ML VIAL 1 MG IV (15:14)
[2023-05-17] MEDS: FENTANYL 100MCG/2ML VIAL 50 MCG IV (15:14)
[2023-05-17] MEDS: ASPIRIN 81MG CHEWABLE TABLET 81 MG PO (15:50)
[2023-05-17] MEDS: IOPAMIDOL-370 (76%);100ML BOTTLE 150 ML IV (15:51)
[2023-05-17] MEDS: CLOPIDOGREL 300MG TABLET 600 MG PO (15:51)
[2023-05-17] MEDS: IOPAMIDOL-250 (51%) 100ML BOT 139 ML IV (15:51)
[2023-05-17 17:04] LABS: CATHL Activated Clotting Time 246 SEC (74-125)
== END 2023-05-17 19:04 | disposition home or self-care (01) ==
PROVIDERS: PCP Physician Assistant; Visit Provider Internal Medicine
DX: I25.118 Atherosclerotic heart disease of native coronary artery with other forms of angina pectoris (principal); I70.1 Atherosclerosis of renal artery; I77.1 Stricture of artery; I70.213 Atherosclerosis of native arteries of extremities with intermittent claudication, bilateral legs; I15.0 Renovascular hypertension; Z79.899 Other long term (current) drug therapy; F17.210 Nicotine dependence, cigarettes, uncomplicated; Z79.01 Long term (current) use of anticoagulants; E87.6 Hypokalemia; I10 Essential (primary) hypertension; Z95.2 Presence of prosthetic heart valve
CPT/HCPCS: 36247; 36248; 36251; 37236; 75716; 80048; 85025; 85347; 92928; 93306; 93458; 99152; 99153; C1725; C1769; C1876; C9600; J1644; J2405; Q9966; Q9967

== ENCOUNTER 2023-06-15 11:05 | Outpatient (CLI) | payer MEDICAID, SELFPAY ==
--- NOTE | 2023-06-15 11:12 | CA_ITS ---
FINAL REPORT CLINICAL HISTORY: S/P HEART CATH WITH RIGHT WRIST ACCESS ON 04/18/23,PT C/O KNOT LATERAL WRIST SINCE PROCEDURE COMPARISON: None FINDINGS: Spectral and Doppler waveform evaluations of the right wrist was performed. Spectral analysis was performed. The radial artery is patent. There is no evidence of pseudoaneurysm, thrombus, or AV fistula. There is 11 mm hypoechoic nodule at the area of interest which may represent a hematoma. IMPRESSION: No evidence of pseudoaneurysm, thrombus, or AV fistula. Probable hematoma at the area of interest. Reviewed, Interpreted and Dictated by Dax Suresh III, MD Transcribed by Ruth Ordoñez Authenticated and [facility]
== END 2023-06-15 23:59 | disposition home or self-care (01) ==
LOC: RT 11:05
PROVIDERS: PCP Physician Assistant; Visit Provider Nurse Practitioner
DX: M25.431 Effusion, right wrist (principal)
CPT/HCPCS: 93931

== ENCOUNTER 2023-06-21 10:24 | Day surgery (SDC) | payer MEDICAID, SELFPAY ==
[2023-06-21] VITALS (12 sets, daily range): BP systolic 128–208; BP diastolic 66–101; PULSE 50–64; RESP 16–20; O2SAT 90–100; BMI 27.0
--- NOTE | 2023-06-21 07:24 | IR_ITS ---
APPROVED REPORT Patient Location: Outpatient PROCEDURES Right femoral artery retrograde angiogram Bare-metal balloon expandable stent deployment to the right common iliac artery Bare-metal self-expanding stent deployment to the right external iliac artery Post stent retrograde right femoral artery angiogram INDICATION Right common iliac artery stenosis, Right external iliac artery stenosis, [place] claudication class III Informed consent was obtained prior to the procedure. COMPLICATIONS NONE Estimated Blood Loss: LESS THAN 10 ML TECHNIQUE 1% lidocaine used anesthetize right groin the right femoral artery is accessed via the Salinger technique and a 5 Romansh sheath is placed in the right femoral artery. Retrograde angiography was performed. An advantage wire was used to negotiate through the stenosis in the right common and external iliac artery. Therapeutic heparin was administered and the 5 Romansh sheath was exchanged for 23 cm 6 Romansh Brite tip sheath. An 8 mm x 57 mm balloon mounted bare-metal stent was deployed at 10 bill from the right common iliac artery. Following this an 8 mm x 20 mm noncompliant balloon was deployed at 14 bill at the proximal portion of post dilate. Excellent angiographic results were obtained. The balloon was brought back to the right external iliac artery where inflation was performed at 4 bill. Following this an 8 mm x 60 mm self-expanding bare-metal stent was deployed reducing the stenosis. A 7 mm x 40 mm peripheral balloon was then inserted and deployed at 14 bill to post dilate. Retrograde angiography demonstrated wide patency of the right common and external iliac artery. At the end the procedure the apparatus was removed the groin was reprepped closure change sheath was removed and hemostasis was achieved using Angio-Seal device patient was transferred to the postop holding in stable condition ANGIOGRAPHIC RESULTS Right common iliac artery has an ostial 70% calcified stenosis with proximal complex 80 to 90% stenosis Right external iliac artery has calcified 80% stenosis IMPRESSION Severe right common and external iliac artery stenosis Successful stenting of the right common and external iliac artery severe disease reduced to 0% with 2 bare-metal stents 1 being balloon mounted expandable while the other was self-expanding PLAN 1. Risk factor modification 2. Continue dual antiplatelet therapy 3. Physical therapy Electronically signed by : Zohaib Gutierrez MD 06/21/2023 12:46:11
[2023-06-21 10:49] LABS: Basophils # 0.1 K/mm3 (0-0.2); Basophils % 1.6 % (0.1-2.0); Eosinophils # 0.2 K/mm3 (0.0-0.4); Hematocrit 52.6 % (37.0-47.0); Lymphocytes # 2.2 K/mm3 (0.7-4.5); Lymphocytes % 25.8 % (10-50); Mean Corpuscular HGB Conc 32.2 g/dL (31.8-35.4); Mean Corpuscular Hemoglobin 29.8 pg (27.0-31.2); Mean Corpuscular Volume 92.5 fl (81-99); Mean Platelet Volume 7.5 fl (7.4-10.4); Monocytes # 0.4 K/mm3 (0.1-1.0); Monocytes % 4.4 % (1.7-9.3); Neutrophils # 5.6 K/mm3 (1.8-7.8); Neutrophils % 66.2 % (37.0-80.0); Platelet Count 329 K/mm3 (142-424); Red Blood Count 5.69 M/mm3 (4.20-5.40); Red Cell Distribution Width 14.1 % (11.5-17.5); White Blood Count 8.4 K/mm3 (4.8-10.8)
[2023-06-21 11:02] LABS: Chloride 106 mmol/L (98-107); Potassium 3.4 mmoL/L (3.5-5.1); Sodium 141 mmol/L (136-145)
[2023-06-21 11:05] LABS: Anion Gap 7.4 mEq/L (5-15); Blood Urea Nitrogen 12 mg/dl (7-17); Calcium 9.7 mg/dl (8.4-10.2); Carbon Dioxide 31 mmol/L (22.0-30.0); Creatinine Clearance Estimated 58 mL/min (50-200); Estimated Glomerular Filt Rate 63 ml/min (>60); GFR (African American) 76 ML/MIN (>60); Glucose 97 mg/dl (74-100)
[2023-06-21] MEDS: HEPARIN 1,000 UNITS/500ML NS (CATH LAB) 3000 UNIT IV (11:58)
[2023-06-21] MEDS: diphenhydrAMINE 50MG/ML VIAL 50 MG IV (11:58)
[2023-06-21] MEDS: 0.9 % SODIUM CHLORIDE 500 ML 25 ML IV (11:58)
[2023-06-21] MEDS: LIDOCAINE 1% 10ML MDV 20 ML IJ (11:59)
[2023-06-21] MEDS: HEPARIN 1,000 UNITS/ML 10ML VIAL (CATH LAB) 10000 UNIT IV (11:59)
[2023-06-21] MEDS: MIDAZOLAM HCL 1MG/1ML 5ML VIAL 1 MG IV (12:42)
[2023-06-21] MEDS: FENTANYL 100MCG/2ML VIAL 50 MCG IV (12:42)
[2023-06-21] MEDS: IOHEXOL-240 100ML BOTTLE 75 ML IV (13:01)
[2023-06-21 13:03] LABS: CATHL Activated Clotting Time 350 SEC (74-125)
--- NOTE | 2023-06-21 15:37 | CA_ITS ---
FINAL REPORT TECHNIQUE: Arterial duplex Doppler evaluation of the right lower extremity with spectral analysis. CLINICAL HISTORY: POST ILIAC STENTING,PT C/O NUMBNESS OF RLE,PT UNABLE TO STAND ON RLE FINDINGS: There are monophasic waveforms throughout the right lower extremity. No flow is identified from the common femoral artery through the tibial vessels. IMPRESSION: Findings consistent with high-grade inflow stenosis. Repeat catheter directed angiography may be of value. Reviewed, Interpreted and Dictated by Mal Quinones MD Transcribed by Nguyen Ramos Authenticated and [facility]
--- NOTE | 2023-06-21 15:40 | SUR.PHASEII ---
Attempted to stand patient multiple times, pt starts to ease to the floor and states My right leg feels numb Helped patient back to bed, notified Dr Gutierrez, states to get stat doppler of extremity. 2+ femoral pulses, no pulse in pedals, pt baseline. Leg is pink and warm to touch.
--- NOTE | 2023-06-21 15:41 | SUR.PHASEII ---
Pt visitor updated on POC
--- NOTE | 2023-06-21 15:45 | SUR.OPER ---
Notified dr reid of doppler findings, stated to get a stat CTA of the right extremity
--- NOTE | 2023-06-21 15:51 | CT_ITS ---
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 3D rendering (Not supervised by radiologist): MIP and/or 3D reconstructed images were created by the technologist. Radiation optimization: All CT scans at this facility use at least one of these dose optimization techniques: automated exposure control; mA and/or kV adjustment per patient size (includes targeted exams where dose is matched to clinical indication); or iterative reconstruction. Contrast material: ISOVUE 370; Contrast volume: 100 ml; Contrast route: INTRAVENOUS (IV); COMPARISON: No relevant prior studies available. FINDINGS: Aorta: There is atherosclerotic disease of the aorta without evidence of a hemodynamically significant stenosis. Celiac trunk and mesenteric arteries: No occlusion or significant stenosis. Renal arteries: There is a right proximal renal artery stent which is patent without evidence of a hemodynamically significant stenosis. There is atherosclerotic disease involving the origin of the left renal artery with 30-50% narrowing. Right iliac arteries: There is a right common iliac artery stent which is patent. It extends into the external iliac artery which is patent. The origin of the internal iliac artery is poorly seen in the proximal right internal iliac artery is occluded. There is reconstruction of the thinner artery more distally due to radicles. Right femoral/popliteal arteries: There is a 50-60% stenosis involving the proximal right common femoral artery. There is a patent right profundus femoral artery. There is 70+% stenosis at the origin the right superficial femoral artery which becomes close to 90% in the proximal 3 cm of the artery. The artery then occludes approximately 9 cm from its origin. There is faint reconstitution of the very distal right superficial femoral artery. Is very stenotic into the popliteal artery which is seen appears intact with less than 30% narrowing throughout its course. Right infrapopliteal arteries: There is a thin right anterior tibial artery which does progress almost to the ankle in is not seen questionably due to slow flow from the proximal so occlusions in stenosis. The right posterior tibial/peroneal trunk is seen with over 70% narrowing. It is not occluded with the peroneal and posterior tibial arteries extending to the ankle. Left iliac arteries: There is 70+% narrowing involving the origin the left internal iliac artery. The left common and external iliac arteries demonstrate less than 50% stenosis. Left femoral/popliteal arteries: There is occlusion of the left superficial femoral artery at its origin. The left profundus femoral artery demonstrates less than 50% narrowing at its origin. There is faint reconstitution of the distal superficial femoral artery on the left at Trevon's canal via collaterals. Popliteal artery on the left appears intact. Left infrapopliteal arteries: The left anterior tibial artery is seen intact to just before the ankle. From there it is not seen possibly due to slow flow in a thin artery. The left posterior tibial/peroneal trunk demonstrates less than 50% narrowing. The posterior tibial and the left peroneal arteries are seen to just above the ankle (peroneal) and to the ankle (posterior tibial). Liver: Fatty liver, not enlarged. Gallbladder and bile ducts: Cholecystectomy clips without biliary dilatation. Pancreas: Unremarkable. No mass. No ductal dilation. Spleen: Normal. No splenomegaly. Adrenal glands: Normal. No mass. Kidneys and ureters: Normal. No mass. Stomach and bowel: Unremarkable. No obstruction. No mucosal thickening. Appendix: No evidence of appendicitis. Urinary bladder: Unremarkable. No mass. Reproductive: Cystic lesion measuring 20 mm in the left adnexa likely ovarian. Status post hysterectomy. Intraperitoneal space: Unremarkable. No free air. No significant fluid collection. Lymph nodes: No lymphadenopathy. Bones/joints: Moderate arthritic changes in the spine without fracture and/or listhesis. Soft tissues: Unremarkable. Other findings: Small granuloma measuring 2 mm in the left base. IMPRESSION: 1. Bilateral superficial femoral artery occlusions with reconstitution is. 2. Bilateral 2-3 vessel runoff to the ankle. Both anterior tibial arteries are not well seen just above the ankle. 3. Right-sided stents which are patent. 4. Moderate stenosis proximal right common femoral artery. 5. Severe stenosis left internal iliac artery. 6. Occluded origin of the right internal iliac artery.
[2023-06-21] MEDS: HEPARIN SODIUM,PORCINE/D5W 500 ML 16 UNIT IV (16:00)
--- NOTE | 2023-06-21 16:17 | SUR.PHASEII ---
Took patient for stat CTA of lower RT extremety. patient was brought back into room, and placed on monitor. patient currently on heparin drip.
[2023-06-21] MEDS: SODIUM CHLORIDE 0.9% 10ML SYR (RAD ONLY) 10 ML IV (16:18)
[2023-06-21] MEDS: 0.9 % SODIUM CHLORIDE 50 ML VIAL 100 ML IV (16:18)
[2023-06-21] MEDS: IOPAMIDOL-370 (76%);100ML BOTTLE 100 ML IV (16:19)
[2023-06-21] MEDS: CLOPIDOGREL 300MG TABLET 300 MG PO (16:26)
== END 2023-06-21 17:30 | disposition home or self-care (01) ==
PROVIDERS: PCP Physician Assistant; Visit Provider Internal Medicine
DX: I77.1 Stricture of artery (principal); F17.210 Nicotine dependence, cigarettes, uncomplicated; Z79.899 Other long term (current) drug therapy; Z79.01 Long term (current) use of anticoagulants; E55.9 Vitamin D deficiency, unspecified; I10 Essential (primary) hypertension; I25.118 Atherosclerotic heart disease of native coronary artery with other forms of angina pectoris; I70.211 Atherosclerosis of native arteries of extremities with intermittent claudication, right leg
CPT/HCPCS: 36415; 37221; 37223; 73706; 80048; 85025; 85347; 93926; 99152; 99153; C1725; C1760; C1769; C1776; C1876; C1894; J1644; Q9966; Q9967

== ENCOUNTER 2023-06-28 15:12 | Outpatient (CLI) | payer MEDICAID, SELFPAY ==
[2023-06-28 16:00] LABS: Blood Urea Nitrogen 8 mg/dl (7-17); Calcium 9.2 mg/dl (8.4-10.2); Carbon Dioxide 36 mmol/L (22.0-30.0); Chloride 99 mmol/L (98-107); Estimated Glomerular Filt Rate 72 ml/min (>60); GFR (African American) 87 ML/MIN (>60); Glucose 105 mg/dl (74-100); Sodium 133 mmol/L (136-145)
[2023-06-28 17:30] LABS: Anion Gap 1.1 mEq/L (5-15); Potassium 3.1 mmoL/L (3.5-5.1)
== END 2023-06-28 23:59 | disposition home or self-care (01) ==
LOC: LAB 15:13
PROVIDERS: PCP Physician Assistant; Visit Provider Internal Medicine
DX: I25.10 Atherosclerotic heart disease of native coronary artery without angina pectoris (principal); I73.9 Peripheral vascular disease, unspecified
CPT/HCPCS: 36415; 80048

== ENCOUNTER 2023-06-29 12:31 | Outpatient (CLI) | payer MEDICAID, SELFPAY ==
[2023-06-29 12:35] LABS: Microscopic, Urine URINE MICROSCOPIC (MICROSCOPIC)
[2023-06-29 12:53] LABS: Appearance,Urine CLEAR (Clear); Blood, Urine Negative (Negative); Color,Urine YELLOW (Yellow); Glucose,Urine (UA) Negative (Negative); Ketones,Urine Negative (Negative); Leukocyte Esterase,Urine 1+ (Negative); Nitrate,Urine Negative (Negative); Protein,Urine Negative (Negative); Specific Gravity, Urine 1.025 (1.005-1.030); Urobilinogen,Urine 0.2 EU/dl (0.2)
[2023-06-29 13:01] LABS: Bilirubin,Urine 1+ (Negative)
[2023-06-29 14:02] LABS: Calcium Oxalate Crystals,Urine 1+ /lpf; Mucus,Urine 1+ /lpf
[2023-06-29 14:12] LABS: Bacteria,Urine 1+ /lpf; Trichomonas,Urine 1+ /lpf
== END 2023-06-29 23:59 | disposition home or self-care (01) ==
LOC: LAB.DROPOF 12:32
PROVIDERS: PCP Physician Assistant; Visit Provider Internal Medicine
DX: R30.0 Dysuria (principal); B96.89 Other specified bacterial agents as the cause of diseases classified elsewhere; Z79.899 Other long term (current) drug therapy
CPT/HCPCS: 81001; 87086

== ENCOUNTER 2023-07-02 14:00 | Outpatient (CLI) | payer MEDICAID, SELFPAY ==
--- NOTE | 2023-07-02 14:00 | CA_ITS ---
FINAL REPORT TECHNIQUE: Arterial duplex Doppler evaluation of the right lower extremity with spectral analysis. CLINICAL HISTORY: Pain right groin following cath 11 days ago COMPARISON: None FINDINGS: There has an ovoid subcentimeter anechoic focus in the right inguinal region which could represent seroma or hematoma. No pseudoaneurysm is noted. IMPRESSION: Possible seroma or hematoma at the area of interest. No evidence of pseudoaneurysm. Reviewed, Interpreted and Dictated by Mal Quinones MD Transcribed by Ruth Ordoñez Authenticated and [facility]
== END 2023-07-02 23:59 | disposition home or self-care (01) ==
LOC: RT 14:00
PROVIDERS: PCP Physician Assistant; Visit Provider Internal Medicine
DX: R10.31 Right lower quadrant pain (principal)
CPT/HCPCS: 93926

== ENCOUNTER 2023-09-22 12:27 | Outpatient (CLI) | payer MEDICAID, SELFPAY ==
--- NOTE | 2023-09-22 12:28 | CT_ITS ---
FINAL REPORT CLINICAL HISTORY: claudication /right leg pain COMPARISON: 06/21/2023 FINDINGS: Post contrast axial imaging of the aorta and bilateral lower extremity was obtained and reviewed.This study was performed with techniques to keep radiation doses as low as reasonably achievable (ALARA). Individualized dose reduction techniques using automated exposure control or adjustment of mA and/or kV according to the patient''s size were employed. There is no evidence of aortic aneurysm. There is no evidence of aortic stenosis. The celiac axis, superior mesenteric artery and inferior mesenteric artery are patent. There is a right renal artery stent that is patent. Atherosclerotic disease at the origin of the left renal artery is stable with stable stenosis. A right common iliac artery stent is patent. There is atherosclerotic disease of the bilateral common iliac arteries that is unchanged. The appearance of the right internal iliac artery is unchanged. It may be partially occluded with more distal reconstitution. Stenosis of the proximal left internal carotid artery is unchanged. The external iliac arteries are otherwise patent. Right lower extremity: The right common femoral artery is patent. There is a high-grade stenosis of the right superficial femoral artery of at least 90%. It then occludes in the proximal thigh. This is also unchanged. The profunda artery is patent to the mid thigh. At the level of the adductor hiatus, there is faint reconstitution of the right superficial femoral artery. The popliteal artery is also stable demonstrating approximately 30% stenosis. There is a three-vessel runoff in the proximal calf. The anterior tibial and peroneal arteries are faintly visualized to the ankle. The posterior tibial artery is visualized into the foot. Left lower extremity: The left common femoral artery demonstrates 40 to 50% stenosis. The superficial femoral artery is occluded at the bifurcation. The profunda artery is patent to the distal thigh. There is reconstitution of the left superficial femoral artery at the adductor hiatus. Popliteal artery stenosis is stable. There is a three-vessel runoff in the proximal calf. The anterior tibial and peroneal arteries were not well-seen at the ankle. No acute abnormality of the solid abdominal organs. The proximal colon is fluid-filled with mild hyperenhancement of the wall. Colitis is not excluded. No lymphadenopathy or ascites. No fluid collection. IMPRESSION: 1. Stable bilateral superficial femoral artery occlusion as detailed above. 2. Stable appearance to the vessels of the lower extremities below the knees. 3. Overall, no change in the vasculature since recent exam. 4. Wall thickening of the proximal colon which is fluid-filled. Consider colitis. Authenticated and [facility]
[2023-09-22 13:00] LABS: Blood Urea Nitrogen 12 mg/dl (7-17); Estimated Glomerular Filt Rate 63 ml/min (>60); GFR (African American) 76 ML/MIN (>60)
--- NOTE | 2023-09-22 13:05 | CA_ITS ---
FINAL REPORT CLINICAL HISTORY: claudication /right leg pain COMPARISON: None FINDINGS: DUPLEX VENOUS SONOGRAPHY OF THE RIGHT LOWER EXTREMITY Multiple transverse and longitudinal scans were performed of the femoropopliteal deep venous system, with augmentation and compression maneuvers. HISTORY: Pain FINDINGS: Normal phasic flow was noted in the visualized deep venous system. No intraluminal increased echogenicity is noted to suggest thrombus. There is normal compression and augmentation of the venous structures. No abnormal venous collaterals are seen. IMPRESSION: No evidence of deep venous thrombosis of the right lower extremity. Reviewed, Interpreted and Dictated by Alejandra Tompkins MD Transcribed by Trish Turcios Authenticated and [facility]
[2023-09-22] MEDS: 0.9 % SODIUM CHLORIDE 50 ML VIAL 100 ML IV (14:14)
[2023-09-22] MEDS: IOPAMIDOL-370 (76%);100ML BOTTLE 120 ML IV (14:15)
[2023-09-22] MEDS: SODIUM CHLORIDE 0.9% 10ML SYR (RAD ONLY) 10 ML IV (14:15)
== END 2023-09-22 23:59 | disposition home or self-care (01) ==
LOC: RAD 12:28
PROVIDERS: PCP Physician Assistant; Visit Provider Internal Medicine
DX: M79.604 Pain in right leg (principal); I73.9 Peripheral vascular disease, unspecified; I10 Essential (primary) hypertension; Z95.2 Presence of prosthetic heart valve; F17.210 Nicotine dependence, cigarettes, uncomplicated
CPT/HCPCS: 36415; 73706; 82565; 84520; 93971; Q9967

== ENCOUNTER 2023-10-25 08:03 | Day surgery (SDC) | payer MEDICAID, SELFPAY ==
[2023-10-25] VITALS (17 sets, daily range): BP systolic 98–175; BP diastolic 48–131; PULSE 50–76; RESP 16–18; TEMP 36.8–36.9; O2SAT 90–100; BMI 27.3
--- NOTE | 2023-10-25 07:03 | IR_ITS ---
APPROVED REPORT Patient Location: Outpatient PROCEDURES Catheter placed in the abdominal aorta Abdominal aortography Repositioning of the catheter in the abdominal aorta Bilateral iliofemoral runoff INDICATION [place] claudication class III, Abnormal CTA, Known peripheral artery disease Informed consent was obtained prior to the procedure. COMPLICATIONS NONE Estimated Blood Loss: LESS THAN 10 ML TECHNIQUE 1% lidocaine used to size right groin the right femoral artery was accessed via the center technique and a 5 [place] sheath is placed in the right femoral artery. A pigtail catheter was advanced and abdominal aortography was performed followed by repositioning of the catheter. Bilateral iliofemoral runoff was performed. At the end the procedure the apparatus was removed the sheath was removed good hemostasis was achieved using manual pressure patient was transferred to the postop putting in stable condition ANGIOGRAPHIC RESULTS Infrarenal abdominal aorta is calcified but patent with 20% stenoses Right common iliac artery has a stent in the proximal segment which is widely patent free of in-stent restenosis with excellent proximal distal transitioning. The right internal iliac artery is occluded while the external iliac artery has 20 and 30% stenoses. The right profunda femoris artery is widely patent. The right superficial femoral artery is ostially occluded and there is reconstitution distally into the proximal popliteal artery. Below the knee there is three-vessel runoff Left common iliac artery has proximal tandem 40% stenoses. The left internal iliac artery is patent the left external iliac artery is patent left common femoral artery is mildly calcified with 10 to 20% stenosis. The left profunda femoris artery is widely patent. The left superficial femoral artery is ostially occluded. There is reconstitution above the knee at the popliteal level from the profunda with three-vessel runoff below the knee IMPRESSION Widely patent right common iliac artery stent with mild to moderate nonflow limiting disease involving the right external iliac artery Moderate nonflow limiting disease in the left common iliac artery Bilateral SFA occlusions throughout their entire length making percutaneous revascularization highly undesirable Three-vessel runoff below the knee bilaterally PLAN 1. Recommend medical management for PAD 2. It is reasonable to use Xarelto 2.5 twice daily plus aspirin 81 mg daily 3. LDL less than 55 to be achieved with high intensity statin 4. Recommend physical therapy for PAD 5. Consider additional evaluation of nonvascular right leg claudication Electronically signed by : Zohaib Gutierrez MD 10/29/2023 12:28:05
--- NOTE | 2023-10-25 08:32 | SUR.PREOP ---
Notified lab for blood draw
--- NOTE | 2023-10-25 08:34 | SUR.PREOP ---
lab at bedside.
[2023-10-25 08:46] LABS: Basophils # 0.1 K/mm3 (0-0.2); Basophils % 0.9 % (0.1-2.0); Eosinophils # 0.1 K/mm3 (0.0-0.4); Eosinophils % 1.8 % (0.1-12.0); Hemoglobin 14.4 g/dL (12.2-16.2); Lymphocytes # 1.7 K/mm3 (0.7-4.5); Lymphocytes % 29.7 % (10-50); Mean Corpuscular HGB Conc 31.3 g/dL (31.8-35.4); Mean Corpuscular Hemoglobin 30.7 pg (27.0-31.2); Mean Corpuscular Volume 98.2 fl (81-99); Mean Platelet Volume 7.7 fl (7.4-10.4); Monocytes # 0.2 K/mm3 (0.1-1.0); Monocytes % 3.5 % (1.7-9.3); Neutrophils # 3.7 K/mm3 (1.8-7.8); Platelet Count 302 K/mm3 (142-424); Red Blood Count 4.69 M/mm3 (4.20-5.40); Red Cell Distribution Width 16.3 % (11.5-17.5); White Blood Count 5.8 K/mm3 (4.8-10.8)
[2023-10-25 09:06] LABS: Chloride 109 mmol/L (98-107)
[2023-10-25 09:07] LABS: Potassium 3.9 mmoL/L (3.5-5.1); Sodium 142 mmol/L (136-145)
[2023-10-25 09:09] LABS: Blood Urea Nitrogen 10 mg/dl (7-17); Creatinine Clearance Estimated 59 mL/min (50-200); Estimated Glomerular Filt Rate 63 ml/min (>60); GFR (African American) 76 ML/MIN (>60)
[2023-10-25 09:10] LABS: Anion Gap 6.9 mEq/L (5-15); Calcium 8.8 mg/dl (8.4-10.2); Carbon Dioxide 30 mmol/L (22.0-30.0); Glucose 91 mg/dl (74-100)
[2023-10-25] MEDS: LIDOCAINE 1% 10ML MDV 20 ML IJ (10:53)
[2023-10-25] MEDS: MIDAZOLAM HCL 1MG/1ML 5ML VIAL 1 MG IV (10:53)
[2023-10-25] MEDS: 0.9 % SODIUM CHLORIDE 500 ML 25 ML IV (10:53)
[2023-10-25] MEDS: FENTANYL 100MCG/2ML VIAL 50 MCG IV (10:53)
[2023-10-25] MEDS: diphenhydrAMINE 50MG/ML VIAL 50 MG IV (10:53)
[2023-10-25] MEDS: HEPARIN 1,000 UNITS/500ML NS (CATH LAB) 3000 UNIT IV (10:54)
[2023-10-25] MEDS: HYDRALAZINE 20MG/ML VIAL 20 MG IV (11:41)
[2023-10-25] MEDS: IOPAMIDOL-250 (51%) 100ML BOT 100 ML IV (13:31)
== END 2023-10-25 14:20 | disposition home or self-care (01) ==
PROVIDERS: PCP Physician Assistant; Visit Provider Internal Medicine
PROC: (CPT 36200; principal; 2023-10-25 08:00)
DX: I70.213 Atherosclerosis of native arteries of extremities with intermittent claudication, bilateral legs (principal); I77.1 Stricture of artery; E55.9 Vitamin D deficiency, unspecified; F17.210 Nicotine dependence, cigarettes, uncomplicated; Z95.820 Peripheral vascular angioplasty status with implants and grafts; Z79.899 Other long term (current) drug therapy; I10 Essential (primary) hypertension; I25.10 Atherosclerotic heart disease of native coronary artery without angina pectoris
CPT/HCPCS: 36200; 75625; 36247; 36415; 75716; 80048; 85025; 99152; 99153; C1725; C1769; C1894; J1200; J1644; J2250; J3010; Q9966

== ENCOUNTER 2024-01-28 13:07 | Outpatient (CLI) | payer MEDICAID, SELFPAY ==
--- NOTE | 2024-01-28 13:08 | MM_ITS ---
PROCEDURE INFORMATION: Exam: MG Bilateral Screening 3D Mammography Exam date and time: 01/28/2024 12:55 PM Age: 63 years old Clinical indication: Screening examination TECHNIQUE: Imaging protocol: Bilateral Screening tomosynthesis and 2D mammography including computer-aided detection (CAD) when performed. COMPARISON: 1. MG MM DIG SCREENING MAMM BI W/CAD 08/19/2020 4:04 PM 2. MG MM DIG SCREENING MAMM BI W/CAD 07/27/2019 1:11 PM FINDINGS: MAMMOGRAPHY: Breast composition: There are scattered areas of fibroglandular density. Mass: None. Architectural distortion: None. Calcifications: No suspicious calcifications. Asymmetric density: None. Skin thickening: None. Axillary adenopathy: None. IMPRESSION: No mammographic evidence of malignancy. Annual screening is recommended unless otherwise clinically indicated. ASSESSMENT: BI-RADS Category 1: Negative.
== END 2024-01-28 23:59 | disposition home or self-care (01) ==
LOC: RAD 13:08
PROVIDERS: PCP Physician Assistant; Visit Provider Physician Assistant
DX: Z12.31 Encounter for screening mammogram for malignant neoplasm of breast (principal)
CPT/HCPCS: 77063; 77067

== ENCOUNTER 2024-06-12 15:05 | Outpatient (CLI) | payer MEDICARE, MEDICAID, SELFPAY ==
--- NOTE | 2024-06-12 15:00 | US_ITS ---
PROCEDURE INFORMATION: Exam: US Left Breast, Complete Exam date and time: 06/12/2024 3:05 PM Age: 64 years old Clinical indication: Breast pain; Left; Additional info: Left breast pain, tenderness under armpit TECHNIQUE: Imaging protocol: Complete ultrasound of all four quadrants of the left breast and the retroareolar regions, including ultrasound of the axilla when performed. COMPARISON: MG MM DIG SCREENING MAMM BI W/CAD 01/28/2024 12:55 PM FINDINGS: ULTRASOUND: Breast ultrasound findings: No mass identified. Axillary node measures 1.9 x 0.7 x 2.07 cm IMPRESSION: No sonographic evidence of malignancy. Annual mammographic screening is recommended unless otherwise clinically indicated. ASSESSMENT: BI-RADS Category 1: Negative.
== END 2024-06-12 23:59 | disposition home or self-care (01) ==
LOC: RAD 15:07
PROVIDERS: PCP Physician Assistant; Visit Provider Obstetrics & Gynecology
DX: N64.4 Mastodynia (principal)
CPT/HCPCS: 76641

== ENCOUNTER 2025-02-22 10:14 | Day surgery (SDC) | payer MEDICARE, MEDICAID, SELFPAY ==
--- NOTE | 2025-02-22 07:22 | IR_ITS ---
APPROVED REPORT Patient Location: Outpatient Informed consent was obtained prior to the procedure. COMPLICATIONS None Estimated Blood Loss: Less than 10 mls IMPRESSION Patient was thoroughly examined in the preoperative area. Patient had +2 right femoral pulse with a warm right lower extremity and foot. Dopplerable pulses were easily heard in the well-perfused right foot. Patient was describing of a burning sensation which was waking her in the middle the night which started in her posterior calf wrapped anteriorly and then down into her first 3 toes. Patient indicates this was burning and extremely painful. If she grabbed her toes and squeezed the pain seemed to ease. Patient was on Neurontin 800 mg 3 times a day. After determining patient's foot was vascularly intact it was decided not to proceed with runoff given the complexity of her peripheral artery disease and recent stents. Instead patient's ischemic neuropathy will be treated with oxycodone 5 mg / 325 mg 1 p.o. every 12 hours as needed #60. Patient will be referred to pain clinic. I recommend as needed oxycodone and if she proves to require significant oxycodone for the ischemic neuropathy I would then recommend a low-dose fentanyl patch be applied. Perhaps the ischemic neuropathy will improve over time however considering she is already on 800 mg 3 times a day of Neurontin it is unlikely she will experience significant improvement. Most likely chronic pain control using opiates will be necessary PLAN 1. Oxycodone/acetaminophen 5 mg/325 1 p.o. every 12 hours as needed #60 2. Consider fentanyl patch depending on response to oxycodone 3. Refer to pain clinic for consideration of chronic opiate prescriptions for analgesia 4. Continue Neurontin 800 mg 3 times a day 5. Risk factor modification for Sad[place] vascular disease 6. Avoidance of tobacco products Electronically signed by : Zohaib Gutierrez MD 02/22/2025 13:51:56
[2025-02-22 10:17] VITALS: BMI 27.8
[2025-02-22 10:35] LABS: Hematocrit 40.0 % (37.0-47.0); Hemoglobin 12.6 g/dL (12.2-16.2); Immature Granulocytes % 0.3 %; Mean Corpuscular HGB Conc 31.5 g/dL (31.8-35.4); Mean Corpuscular Hemoglobin 28.8 pg (27.0-31.2); Mean Corpuscular Volume 91.5 fl (81-99); Nucleated Red Blood Cells % 0 %; Platelet Count 397 K/mm3 (142-424); Red Blood Count 4.37 M/mm3 (4.20-5.40); Red Cell Distribution Width-SD 49.1 fL; White Blood Count 7.5 K/mm3 (4.8-10.8)
[2025-02-22 10:51] VITALS: BP 99/67; PULSE 56; RESP 20; O2SAT 95
[2025-02-22 10:53] LABS: Anion Gap 6.2 mEq/L (5-15); Blood Urea Nitrogen 11 mg/dl (7-17); Calcium 9.0 mg/dl (8.4-10.2); Carbon Dioxide 32 mmol/L (22.0-30.0); Chloride 104 mmol/L (98-107); Creatinine Clearance Estimated 58 mL/min (50-200); Creatinine,Serum 1.00 mg/dl (0.52-1.04); Estimated Glomerular Filt Rate 55 ml/min (>60); GFR (African American) 67 ML/MIN (>60); Glucose 86 mg/dl (74-100); Potassium 4.2 mmoL/L (3.5-5.1); Sodium 138 mmol/L (136-145)
--- NOTE | 2025-02-22 11:10 | SUR.PREOP ---
Accompanied Dr Gutierrez in pt room to assess femoral site and pulses. Dr Gutierrez states we are going to cancel procedure and call patient in pain medication, notified Estephania of med orders. Pt IV removed and dressed. Daughter accompanying her.
== END 2025-02-22 11:33 | disposition home or self-care (01) ==
LOC: CATHLAB 10:15
PROVIDERS: PCP Physician Assistant; Visit Provider Internal Medicine
DX: M79.604 Pain in right leg (principal); I70.219 Atherosclerosis of native arteries of extremities with intermittent claudication, unspecified extremity; I25.10 Atherosclerotic heart disease of native coronary artery without angina pectoris; I10 Essential (primary) hypertension; E78.5 Hyperlipidemia, unspecified; G62.9 Polyneuropathy, unspecified; F17.210 Nicotine dependence, cigarettes, uncomplicated; Z79.82 Long term (current) use of aspirin; Z79.02 Long term (current) use of antithrombotics/antiplatelets; Z79.01 Long term (current) use of anticoagulants; Z79.899 Other long term (current) drug therapy; Z88.5 Allergy status to narcotic agent; Z95.5 Presence of coronary angioplasty implant and graft
CPT/HCPCS: 36415; 80048; 85025